=== PATIENT | male | born 1960 | race Caucasian/White ===

== ENCOUNTER 2025-01-22 14:47 | Observation (INO) | payer BC, MEDICARE ==
[~2025-01-22] VITALS: Ht 172.7 cm; Wt 79.1 kg
[2025-01-22] MEDS ORDERED: ISOVUE-370 76% 100 ML VIAL As Ordered ONE (15:00)
[2025-01-22 15:10] LABS: BASO # 0.1 10^3/uL (0.0-0.2); BASO % 0.8 % (0.0-1.0); EOS # 0.2 10^3/uL (0.0-0.5); EOS % 2.1 % (0.0-3.0); LYMPH # 2.8 10^3/uL (1.5-5.0); LYMPH % 32.8 % (24.0-44.0); MONO # 0.7 10^3/uL (0.0-0.8); MONO % 8.5 % (2.0-8.0); NEUTROPHILS # 4.8 10^3/uL (1.5-8.5); NEUTROPHILS % 55.5 % (36.0-66.0); PLATELET COUNT, AUTOMATED 178 10^3/uL (150-450)
[2025-01-22 15:11] LABS: VENOUS BASE EXCESS -3.3 (-2.0-2.0); VENOUS HCO3 21.4 MMOL/L (23.0-27.0); VENOUS O2 SATURATION 98.3 % (60.0-80.0); VENOUS PARTIAL PRESSURE CO2 37.7 mmHg (38.0-50.0); VENOUS PARTIAL PRESSURE O2 144.5 mmHg (30.0-50.0); VENOUS PH 7.372 UNITS (7.330-7.430); VENOUS STANDARD HCO3 21.7 MMOL/L; VENOUS TOTAL CO2 22.6 MMOL/L (24.0-28.0)
[2025-01-22 15:34] LABS: ETHYL ALCOHOL (ETHANOL) < 0.003 % (0.000-0.010)
[2025-01-22 15:35] LABS: SALICYLATE LEVEL < 3.0 MG/DL (<30)
[2025-01-22] MEDS ORDERED: GABA-1490 PO (15:35)
[2025-01-22] MEDS ORDERED: LOSA100T5 PO (15:35)
[2025-01-22] MEDS ORDERED: CARB20TA PO (15:35)
[2025-01-22] MEDS ORDERED: TEST200I14 IM (15:35)
[2025-01-22] MEDS ORDERED: AMLO1TAB25 PO (15:35)
[2025-01-22] MEDS ORDERED: METF-838 PO (15:35)
[2025-01-22] MEDS ORDERED: SEMA0.257 SQ (15:35)
[2025-01-22] MEDS ORDERED: ROSU20TA86 PO (15:35)
[2025-01-22] MEDS ORDERED: FOLI1TAB11 PO (15:35)
[2025-01-22 15:36] LABS: ALT/SGPT 21 U/L (7.0-40); AST/SGOT 26 U/L (<34); CALCIUM LEVEL 8.5 MG/DL (8.3-10.6); CARBON DIOXIDE LEVEL 26 MMOL/L (20-31); CHLORIDE LEVEL 113 MMOL/L (98-107); CREATININE FOR GFR 1.48 MG/DL (0.70-1.30); GLOMERULAR FILTRATION RATE 51.9 (>49); POTASSIUM SERUM 4.3 MMOL/L (3.5-5.1); SODIUM LEVEL 141 MMOL/L (136-145)
[2025-01-22 15:48] LABS: OSMOLALITY SERUM 308 MOSM/KG (280-301)
[2025-01-22 16:24] LABS: AMPHETAMINES LEVEL URINE NEGATIVE (NEGATIVE); BARBITURATES URINE NEGATIVE (NEGATIVE); BENZODIAZEPINES URINE NEGATIVE (NEGATIVE); COCAINE METABOLITE URINE NEGATIVE (NEGATIVE); METHADONE URINE NEGATIVE (NEGATIVE); OPIATES URINE NEGATIVE (NEGATIVE)
[2025-01-22 16:25] LABS: CANNABINOIDS URINE NEGATIVE (NEGATIVE); PHENCYCLIDINE URINE NEGATIVE (NEGATIVE)
[2025-01-22] MEDS ORDERED: GABA-1172 PO (16:38)
[2025-01-22] MEDS ORDERED: HOME MED LIST COMPLETE! XX SCH (16:40)
[2025-01-22] MEDS: NS (Normal Saline) 0.9% 1,000 ML IV ONE (17:11)
[2025-01-22 18:40] LABS: MAGNESIUM LEVEL 1.9 MG/DL (1.8-2.4)
[2025-01-22 19:38] LABS: KETONE, URINE AUTO RFX NEGATIVE (NEGATIVE); LEUKOCYTE ESTERASE UR AUTO RFX NEGATIVE (NEGATIVE); NITRITE, URINE AUTO RFX NEGATIVE (NEGATIVE); RBC, URINE AUTO RFX 0 /HPF (0-3); SQUAM EPITHELIAL CELL UR AURFX 0 /HPF (0-6); WBC, URINE AUTO RFX 0 /HPF (0-3)
[2025-01-22] MEDS: LR 1,000 ML IV SCH (19:55)
[2025-01-22 20:22] LABS: VITAMIN B12 LEVEL 589 PG/ML (211-911)
[2025-01-22 20:45] VITALS: BP 151/70; TEMP 97.2; O2SAT 98
[2025-01-22 21:00] VITALS: O2SAT 97
[2025-01-22] MEDS: ENOXAPARIN 40 MG/0.4 ML SYRINGE (J1650 PER 10MG) SC SCH (21:00)
[2025-01-22 21:29] VITALS: BP 151/70
[2025-01-22] MEDS: amLODIPine 10 MG TAB PO SCH (21:29)
[2025-01-22] MEDS: ROSUVASTATIN 10 MG TAB PO SCH (21:29)
[2025-01-22 22:00] VITALS: O2SAT 95
[2025-01-22] MEDS: ACETAMINOPHEN 325 MG TAB PO ONE (22:39)
[2025-01-22 23:00] VITALS: O2SAT 95
[2025-01-23] VITALS (13 sets, daily range): BP systolic 109–148; BP diastolic 56–70; TEMP 97.3–97.9; O2SAT 94–98
[2025-01-23 05:38] LABS: BASO # 0.1 10^3/uL (0.0-0.2); BASO % 0.8 % (0.0-1.0); EOS # 0.2 10^3/uL (0.0-0.5); EOS % 3.0 % (0.0-3.0); LYMPH # 2.7 10^3/uL (1.5-5.0); LYMPH % 35.2 % (24.0-44.0); MONO # 0.6 10^3/uL (0.0-0.8); MONO % 7.7 % (2.0-8.0); NEUTROPHILS # 4.1 10^3/uL (1.5-8.5); NEUTROPHILS % 53.0 % (36.0-66.0); PLATELET COUNT, AUTOMATED 181 10^3/uL (150-450)
[2025-01-23 06:16] LABS: ALT/SGPT 17.0 U/L (7.0-40); AST/SGOT 17.0 U/L (<34); CALCIUM LEVEL 8.5 MG/DL (8.3-10.6); CARBON DIOXIDE LEVEL 26.0 MMOL/L (20-31); CHLORIDE LEVEL 116.0 MMOL/L (98-107); CREATININE FOR GFR 1.32 MG/DL (0.70-1.30); GLOMERULAR FILTRATION RATE 59.5 (>49); MAGNESIUM LEVEL 1.8 MG/DL (1.8-2.4); POTASSIUM SERUM 4.3 MMOL/L (3.5-5.1); SODIUM LEVEL 145.0 MMOL/L (136-145)
[2025-01-23] MEDS: FOLIC ACID 1 MG TAB PO SCH (08:33)
[2025-01-23] MEDS ORDERED: ASPI81TA26 PO (10:11)
[2025-01-23] MEDS ORDERED: LOSA50TA28 PO (10:11)
== END 2025-01-23 11:41 | disposition home or self-care (01) ==
LOC: M ED 14:47 → EDBD 14:47 → M ED INP 14:48 → M PCU 20:46
PROVIDERS: ADMIT Internal Medicine; ATTEND Internal Medicine
DX: R55 Syncope and collapse (principal); R26.89 Other abnormalities of gait and mobility; M43.02 Spondylolysis, cervical region; N17.9 Acute kidney failure, unspecified; I49.5 Sick sinus syndrome; Z95.0 Presence of cardiac pacemaker; R29.702 NIHSS score 2; R53.1 Weakness; E86.0 Dehydration; E11.40 Type 2 diabetes mellitus with diabetic neuropathy, unspecified; E78.5 Hyperlipidemia, unspecified; I12.9 Hypertensive chronic kidney disease with stage 1 through stage 4 chronic kidney disease, or unspecified chronic kidney disease; G40.909 Epilepsy, unspecified, not intractable, without status epilepticus; Q60.0 Renal agenesis, unilateral; Z99.89 Dependence on other enabling machines and devices; D53.9 Nutritional anemia, unspecified; N18.9 Chronic kidney disease, unspecified; F17.290 Nicotine dependence, other tobacco product, uncomplicated; Z79.899 Other long term (current) drug therapy; Z79.84 Long term (current) use of oral hypoglycemic drugs
CPT/HCPCS: 36415; 70450; 70496; 70498; 71045; 80047; 80048; 80053; 80076; 80143; 80157; 80307; 81001; 82077; 82140; 82607; 82746; 82803; 83735; 83930; 83935; 84443; 85025; 93005; 93041; 94760; 97116; 97161; 99285; Q9967